=== PATIENT | female | born 1990 ===

== ENCOUNTER 2017-06-09 08:23 | Emergency (ER) | payer OTHER ==
[2017-06-09 08:25] VITALS: BMI 43.0
[2017-06-09 08:27] VITALS: BP 142/70; TEMP 98.1; O2SAT 99
[2017-06-09] MEDS ORDERED: Alum-Mag Hydrox-Simethicone Susp (30 mL) PO ONE (09:09)
--- NOTE | 2017-06-09 09:35 | ED PDOC ---
HPI: Abdomen Time Seen by Provider: 06/09/17 08:41 Chief Complaint (Nursing): Abdominal Pain Chief Complaint (Provider): Abdominal pain History Per: Patient History/Exam Limitations: no limitations Onset/Duration Of Symptoms: Days (x1) Current Symptoms Are (Timing): Still Present Pain Scale Rating Of: 8 Location Of Pain/Discomfort: Epigastric Quality Of Discomfort: Other (tightness) Associated Symptoms: Vomiting (x1), Back Pain. denies: Diarrhea, Chest Pain Additional Complaint(s): Lashaun Sprague is a 27 year old female, with no past medical history, who presents to the emergency department complaining of abdominal pain associated with x1 episode of vomiting, and back pain onset since this morning. Patient describes the abdominal pain as tightness and located in the epigastric region. Patient reports that she will have the same pain occasionally once or twice per month but today the pain has been unbearable. She states she's prone to heart guy and that several members of her family have had their gallbladder taken out. She took pepto bismol this morning with no relief. She denies any diarrhea , chest pain, swelling or syncope. No further medical complaints. PMD: None provided. Past Medical History Reviewed: Historical Data, Nursing Documentation, Vital Signs Vital Signs: Last Vital Signs Temp 98.1 F 06/09/17 08:26 Pulse 70 06/09/17 11:58 Resp 17 06/09/17 11:58 BP 142/70 06/09/17 08:26 Pulse Ox 99 06/09/17 11:58 - Family History Family History: States: Unknown Family Hx - Social History Current smoker - smoking cessation education provided: Yes (some days) Alcohol: Social Drugs: Denies - Home Medications Home Medications: Ambulatory Orders Medication Instructions Recorded Famotidine [Pepcid] 20 mg PO DAILY #14 tab 06/09/17 - Allergies Allergies/Adverse Reactions: Allergies Allergy/AdvReac Type Severity Reaction Status Date / Time No Known Allergies Allergy Verified 06/09/17 08:33 Review of Systems ROS Statement: Except As Marked, All Systems Reviewed And Found Negative Cardiovascular: Negative for: Chest Pain, Other (swelling) Gastrointestinal: Positive for: Vomiting (x1 ), Abdominal Pain (epigastric). Negative for: Diarrhea Musculoskeletal: Positive for: Back Pain Neurological: Negative for: Other (syncope) Physical Exam - Reviewed Nursing Documentation Reviewed: Yes Vital Signs Reviewed: Yes - Physical Exam Appears: Positive for: Well, Non-toxic, No Acute Distress Head Exam: Positive for: ATRAUMATIC, NORMAL INSPECTION, NORMOCEPHALIC Skin: Positive for: Normal Color, Warm, Dry Eye Exam: Positive for: EOMI, Normal appearance, PERRL Neck: Positive for: Normal, Painless ROM, Supple Cardiovascular/Chest: Positive for: Regular Rate, Rhythm. Negative for: Murmur Respiratory: Positive for: Normal Breath Sounds. Negative for: Respiratory Distress Gastrointestinal/Abdominal: Positive for: Tenderness (epigastric) Back: Positive for: Normal Inspection. Negative for: L CVA Tenderness, R CVA Tenderness Extremity: Positive for: Normal ROM. Negative for: Deformity, Swelling Neurologic/Psych: Positive for: Alert, Oriented - Laboratory Results Result Diagrams: 06/09/17 08:39 06/09/17 08:39 - ECG O2 Sat by Pulse Oximetry: 99 (RA) Pulse Ox Interpretation: Normal - Progress Re-evaluation Time: 11:25 Condition: Re-examined, Improved Medical Decision Making Medical Decision Making: Initial Impression: Abdominal pain. Differential includes: abdominal pain, gastritis, cholecystitis, pancreatitis, and GERD Initial Plan: --Comp Metabolic Panel --Lipase --Urine --Urine dipstick --CBC w/ differential --Maalox Plus 30 ml PO --Pepcid 20 mg IVP --Gallbladder [Abdomen limited (GB included)] [US] --reevaluation 1039 Abd US FINDINGS: Examination markedly limited by habitus. LIVER: Measures 14.8 cm in length. Heterogeneous hepatic echotexture. No focal hepatic mass identified. The main portal vein appears patent with normal directional flow. No intrahepatic bile duct dilatation. GALLBLADDER: Immobile gallstones measuring up to 1.8 cm. No gallbladder wall thickening or pericholecystic edema. Positive sonographic Fermin's sign as assessed by the blankbook stitching machine operator. COMMON BILE DUCT: Measures 4 mm. PANCREAS: Not well-visualized. RIGHT KIDNEY: Measures 12.1 x 6.5 x 5.0 cm. No obstructing calculus or hydronephrosis identified. AORTA: Limited visualization appears grossly unremarkable. IVC: Limited visualization appears grossly unremarkable. OTHER FINDINGS: None . IMPRESSION: Markedly limited study. Immobile gallstones within the gallbladder measuring up to 1.8 cm. Positive sonographic Efrmin's sign. No evidence of gallbladder wall thickening or pericholecystic edema. Correlate clinically. Heterogeneous hepatic echotexture. Scribe Attestation: Documented by Kobe Ruiz, acting as a scribe for Erica Robin MD Provider Scribe Attestation: All medical record entries made by the Scribe were at my direction and personally dictated by me. I have reviewed the chart and agree that the record accurately reflects my personal performance of the history, physical exam, medical decision making, and the department course for this patient. I have also personally directed, reviewed, and agree with the discharge instructions and disposition. Disposition - Clinical Impression Clinical Impression: Abdominal pain, Gallstones - Patient ED Disposition Is Patient to be Admitted: No Doctor Will See Patient In The: Office Counseled Patient/Family Regarding: Studies Performed, Diagnosis, Need For Followup - Disposition Referrals: [facility] [Outside] Disposition: Routine/Home Disposition Time: 11:30 Condition: GOOD Additional Instructions: Take your medications as instructed. Return for worsening. Follow up with your PCP in 2-3 days. Prescriptions: Famotidine [Pepcid] 20 mg PO DAILY #14 tab Instructions: Biliary Colic (ED), Gallstones (ED)
[2017-06-09 09:43] LABS: BASO % 0.4 % (0.0-2.0); EOS # 0.2 K/uL (0.0-0.7); EOS % 2.7 % (0.0-4.0); HEMATOCRIT 40.1 % (34.0-47.0); LYMPH # 2.6 K/uL (1.0-4.3); MEAN CELL VOLUME 83.9 fl (81.0-99.0); MEAN CORPUSCULAR HEMOGLOBIN 27.5 pg (27.0-31.0); MEAN CORPUSCULAR HGB CONC 32.7 g/dL (33.0-37.0); MEAN PLATELET VOLUME 7.3 fl (7.2-11.7); MONO # 0.4 K/uL (0.0-0.8); MONO % 5.2 % (0.0-10.0); NEUT % 55.7 % (50.0-75.0); NRBC % 0.1 % (0.0-0.0); RED CELL DISTRIBUTION WIDTH 14.4 % (11.5-14.5); WHITE BLOOD COUNT 7.2 K/uL (4.8-10.8)
[2017-06-09 09:51] LABS: ALB/GLOB RATIO 1.4 (1.0-2.1); ALKALINE PHOSPHATASE 83 U/L (38-126); ALT/SGPT 37 U/L (9-52); AST/SGOT 21 U/L (14-36); BILIRUBIN,TOTAL 0.3 mg/dl (0.2-1.3); BLOOD UREA NITROGEN 13 mg/dl (7-17); CALCIUM 9.3 mg/dL (8.4-10.2); CARBON DIOXIDE 26 mmol/L (22-30); CHLORIDE 107 mmol/L (98-107); GFR AFRICAN-AMERICAN > 60; GLUCOSE,RANDOM 99 mg/dL (65-105); LIPASE 82 U/L (23-300); POTASSIUM 4.6 MMOL/L (3.6-5.0); SODIUM 142 mmol/l (132-148); TOTAL PROTEIN 7.6 G/DL (6.3-8.2)
--- NOTE | 2017-06-09 10:41 | US ---
HISTORY: upper abdominal pain COMPARISON: None available TECHNIQUE: Sonographic evaluation of the right upper quadrant of the abdomen. FINDINGS: Examination markedly limited by habitus. LIVER: Measures 14.8 cm in length. Heterogeneous hepatic echotexture. No focal hepatic mass identified. The main portal vein appears patent with normal directional flow. No intrahepatic bile duct dilatation. GALLBLADDER: Immobile gallstones measuring up to 1.8 cm. No gallbladder wall thickening or pericholecystic edema. Positive sonographic Fermin's sign as assessed by the fiberglass model maker. COMMON BILE DUCT: Measures 4 mm. PANCREAS: Not well-visualized. RIGHT KIDNEY: Measures 12.1 x 6.5 x 5.0 cm. No obstructing calculus or hydronephrosis identified. AORTA: Limited visualization appears grossly unremarkable. IVC: Limited visualization appears grossly unremarkable. OTHER FINDINGS: None . IMPRESSION: Markedly limited study. Immobile gallstones within the gallbladder measuring up to 1.8 cm. Positive sonographic Fermin's sign. No evidence of gallbladder wall thickening or pericholecystic edema. Correlate clinically. Heterogeneous hepatic echotexture.
[2017-06-09 12:11] VITALS: PULSE 70; RESP 17
== END 2017-06-09 11:58 | disposition home or self-care (01) ==
LOC: H.ER 08:23
DX: M54.9 Dorsalgia, unspecified (principal); R10.13 Epigastric pain; F17.200 Nicotine dependence, unspecified, uncomplicated; K80.20 Calculus of gallbladder without cholecystitis without obstruction